=== PATIENT | female | born 1945 | race Caucasian/White ===

== ENCOUNTER 2017-01-10 14:48 | Emergency (ER) | payer MEDICARE, OTHER ==
[2017-01-10 15:03] VITALS: BP 130/71
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
--- NOTE | 2017-01-10 16:04 | CT ---
CT cervical spine Technique: Multiple axial sections were obtained from above C1 inferiorly to below the T2 level. Reconstructed sagittal and coronal images were reviewed. Comparison: No previous cervical spine imaging. Findings: Mastoid sinuses and middle ear cavities are clear. Posterior skull base is intact. Degenerative change is noted between the dens and anterior arch of C1. Mild disc space narrowing is noted at C2-C3 and C3-C4. Severe disc space narrowing is noted at C4-C5, C5-C6 and C6-C7. Mild disc space narrowing noted at C7-T1 as well as at T1-T2 and T2-T3. There are air cysts scattered within the cervical spine and within T1 involving the vertebral bodies which are degenerative in etiology. Mild spondylolisthesis is noted at C3-C4 due to degenerative apophyseal change. Moderate to severe left-sided neural foraminal stenosis noted at C3-C4. Moderate to severe bilateral neural foraminal stenosis noted at C4-C5. Moderate bilateral neural foraminal stenosis is noted C5-C6. Mild bilateral neural foraminal stenosis is noted at C6-C7. Posterior spurring is noted at C4-C5-C7. Calcification is seen within the posterior annulus at C3-C4 and C4-C5. Diffuse degenerative change is seen throughout the apophyseal joints and throughout the uncovertebral joints. No fracture is seen. Impression: 1. Diffuse degenerative change as described above. 2. Nothing acute is appreciated on CT study of the cervical spine. Diagnostic code #2
--- NOTE | 2017-01-10 16:04 | CT ---
Head CT Technique: Multiple axial sections through the brain were obtained. Intravenous contrast was not utilized. Comparison: No previous intracranial imaging. Findings: Ventricles along with basal cisterns and sulci over convexities are mildly prominent. No abnormal parenchymal densities are seen. No evidence of intracranial hemorrhage. No midline shift or mass effect is seen. Bone window settings were reviewed which shows no discrete calvarial abnormality. Visualized sinuses are clear. Impression: 1. Nothing acute is identified on noncontrast head CT study. Diagnostic code #1
--- NOTE | 2017-01-13 08:58 | CR ---
Chest: Frontal view of the chest was obtained. Comparison: No prior chest x-ray. Heart size is normal. Tortuous thoracic aorta is seen. Lungs are clear. Old trauma which appears healed is partially visualized within the proximal left humerus. Old healed fracture is partially visualized within the proximal right humerus. Old healed left upper rib fractures are seen. Impression: 1. Incidental findings. Nothing acute is identified on frontal chest x-ray. Diagnostic code #2
--- NOTE | 2017-01-13 08:58 | CR ---
Right shoulder: Three views of the right shoulder were obtained. Comparison: No previous right shoulder study. Mild joint space narrowing and small osteophytes are seen inferiorly off the acromioclavicular joint. Glenohumeral joint shows minimal degenerative change. Calcification is seen within the soft tissues lateral to the humeral head presumably dystrophic. Difficult to completely exclude calcific tendinitis. Old healed fracture deformity is seen within the proximal humerus. Impression: 1. Degenerative change and old healed proximal humeral fracture. 2. Nothing acute is appreciated on three-view right shoulder study. Diagnostic code #2
--- NOTE | 2017-01-13 08:58 | CR ---
Left knee: Four views of the left knee were obtained. Comparison: Previous left knee exam of 02/17/12. Joint space narrowing is noted within the patellofemoral joint. Slight osteophytes off the medial and lateral joints are seen. No joint effusion is seen. No acute fracture or other abnormality is identified. Well-corticated calcifications are noted off the superior patella which are stable. Impression: 1. Degenerative change as noted above. Nothing acute is appreciated on left knee exam. Diagnostic code #2
--- NOTE | 2017-01-13 08:58 | CR ---
Right knee: Four views of the right knee were obtained. Comparison: Previous right knee exam of 02/17/12. Knee prosthesis is seen. Components are aligned. Underlying bony structures are intact. No fracture or other abnormality is seen. Impression: 1. Right knee prosthesis. Nothing acute is identified. Diagnostic code #2
--- NOTE | 2017-01-13 08:58 | CR ---
Left shoulder: Three views of the left shoulder were obtained. Comparison: Previous left shoulder study of 10/18/10. Old healed fracture deformity is seen within the proximal humerus. Orthopedic screws remain in place. Bony structures are osteopenic. Old healed left upper rib fractures are noted. No acute fracture or other bony abnormality is seen. Impression: 1. Old healed fractures. Nothing acute is seen. Diagnostic code #2
== END 2017-01-10 18:11 | disposition home or self-care (01) ==
LOC: JD.ED 14:48
DX: S01.01XA Laceration without foreign body of scalp, initial encounter (principal); S50.811A Abrasion of right forearm, initial encounter; S20.311A Abrasion of right front wall of thorax, initial encounter; S80.211A Abrasion, right knee, initial encounter; E78.00 Pure hypercholesterolemia, unspecified; I10 Essential (primary) hypertension; J45.909 Unspecified asthma, uncomplicated; K21.9 Gastro-esophageal reflux disease without esophagitis; F41.9 Anxiety disorder, unspecified; F32.9 Major depressive disorder, single episode, unspecified; E66.9 Obesity, unspecified; Z90.49 Acquired absence of other specified parts of digestive tract; Z96.612 Presence of left artificial shoulder joint; Z96.651 Presence of right artificial knee joint; Z88.8 Allergy status to other drugs, medicaments and biological substances; Z88.2 Allergy status to sulfonamides; Z79.899 Other long term (current) drug therapy; Z98.84 Bariatric surgery status; Z86.2 Personal history of diseases of the blood and blood-forming organs and certain disorders involving the immune mechanism; Z68.31 Body mass index [BMI] 31.0-31.9, adult; W10.8XXA Fall (on) (from) other stairs and steps, initial encounter; Y92.241 Library as the place of occurrence of the external cause
CPT/HCPCS: 70450; 70450-26; 71010; 71010-26; 72125; 72125-26; 73030-26-LT; 73030-26-RT; 73030-LT; 73030-RT; 73564-26-LT; 73564-26-RT; 73564-LT; 73564-RT; 99284; 99284-25

== ENCOUNTER 2017-07-24 07:37 | Day surgery (SDC) | payer MEDICARE, OTHER ==
[~2017-07-24 07:37] MED LIST: Cefuroxime 10 MG/ML SYRINGE EYELF SCH; Lidocaine 1% PF 2 ML SDV INJECT SCH; Pilocarpine 4% Ophth Soln 15 ML Bot EYELF SCH; Polymyxin B/Trimethoprim 10 ML Bottle EYELF SCH
[2017-07-24] MEDS: Ofloxacin 0.3% Ophth Soln 5 ML Bottle EYELF SCH ×2 (07:48→08:26)
[2017-07-24] MEDS: Brimonidine 0.2% Ophth Soln 5 ML Bottle EYELF SCH ×3 (07:52→09:34)
[2017-07-24] MEDS: Phenylephrine 2.5% Ophth Soln 2 ML Bot EYELF SCH ×5 (07:56→09:13)
--- NOTE | 2017-07-24 07:58 | PCM.PREANE ---
Preanesthetic Assessment - Anesthesia/Transfusion/Family Hx Anesthesia History: Prior Anesthesia Without Reaction Family History of Anesthesia Reaction: No Transfusion History: Prior Transfusion Without Reaction - Review of Systems General: Other (arthritis) Pulmonary: Other (asthma) Cardiovascular: Other (irregular beat, high cholersterol) Gastrointestinal: Other (GERD on meds) Other: Reports: Diabetes (type 2) - Physical Assessment NPO Status Date: 07/24/17 NPO Status Time: 00:01 Pulse: 59 O2 Sat by Pulse Oximetry: 96 Respiratory Rate: 16 Blood Pressure: 106/54 Weight: 81.647 kg ASA Class: 2 Mental Status: Alert & Oriented x3 Airway Class: Mallampati = 2 Dentition: Reports: Normal Dentition, Implants Thyro-Mental Finger Breadths: 3 Mouth Opening Finger Breadths: 3 ROM/Head Extension: Full Lungs: Clear to Auscultation, Normal Respiratory Effort Cardiovascular: Regular Rate, Regular Rhythm - Allergies Allergies/Adverse Reactions: Allergies Allergy/AdvReac Type Severity Reaction Status Date / Time nitrofurantoin Allergy Rash Verified 07/23/17 15:32 [From Macrobid] nitrofurantoin Allergy Rash Verified 07/23/17 15:32 macrocrystalline [From Macrobid] Sulfa (Sulfonamide Allergy Rash Verified 07/23/17 15:32 Antibiotics) aspirin AdvReac Stomach Verified 07/23/17 15:32 Upset rosuvastatin calcium AdvReac Muscle Verified 07/23/17 15:32 [From Crestor] Aches simvastatin [From Zocor] AdvReac Muscle Verified 07/23/17 15:32 Aches - Anesthesia Plan Beta Jim: Metoprolol Med Last Dose Date: 07/24/17 Med Last Dose Time: 05:30 - Acknowledgements Anesthesia Type Planned: MAC Pt an Appropriate Candidate for the Planned Anesthesia: Yes Alternatives and Risks of Anesthesia Discussed w Pt/Guardian: Yes Pt/Guardian Understands and Agrees with Anesthesia Plan: Yes PreAnesthesia Questionnaire HEENT History: Reports: Allergic Rhinitis, Impaired Vision, Other (See Below) Other HEENT History: wears glasses Cardiovascular History: Reports: High Cholesterol, Hypertension Other Cardiovascular History: palpitations Respiratory History: Reports: Asthma Other Respiratory History: allergies Gastrointestinal History: Reports: Chronic Constipation, GERD, Hiatal Hernia, Other (See Below) Other Gastrointestinal History: gastric ulcer Genitourinary History: Reports: Urinary Incontinence Other Genitourinary History: frequency, stress urinary incontinece, atrophic vaginits, 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: Musculoskeletal History: Reports: Arthritis, Back Pain, Chronic, Neck Pain, Chronic Neurological History: Reports: None Psychiatric History: Reports: Anxiety, Depression Endocrine/Metabolic History: Reports: Obesity/BMI 30+ Hematologic History: Reports: Anemia - Past Surgical History HEENT Surgical History: Reports: Cataract Surgery, Naso-Sinus Surgery, Oral Surgery, Tonsillectomy GI Surgical History: Reports: Appendectomy, Bariatric Procedure, Kristy Fundoplication, Other (See Below) Musculoskeletal Surgical History: Reports: Other (See Below) Other Musculoskeletal Surgeries/Procedures:: knee replacement, hx shoulder surgeries - SUBSTANCE USE Smoking Status *Q: Never Smoker Tobacco Use Within Last Twelve Months: No Second Hand Smoke Exposure: No Recreational Drug Use History: No - HOME MEDS Home Medications: Home Meds Acetaminophen [Acetaminophen Extra Strength] 1,000 mg PO TID 02/18/15 [History] Albuterol Sulfate [Proair Respiclick] 2 puff IH ASDIRECTED PRN 02/18/15 [History ] Calcium Carbonate [Tums] 500 mg PO Q2HR PRN 02/18/15 [History] Calcium Citrate/Vitamin D3 [Calcium Citrate-Vit D Caplet] 1 tab PO BID 02/18/15 [History] Cholecalciferol (Vitamin D3) [Vitamin D3] 2,000 unit PO BID 02/18/15 [History] Fluticasone Propionate [Flonase] 1 spray NASBOTH BID 02/18/15 [History] Fluticasone Propionate [Flovent HFA 110 MCG] 2 puff INH BID 02/18/15 [History] LORazepam [Ativan] 1 mg PO QAM 02/18/15 [History] Loratadine [Claritin] 5 mg PO DAILY PRN 02/18/15 [History] Loteprednol [Lotemax 0.5% Ophth Soln] 1 drop OP ASDIRECTED PRN 02/18/15 [History ] Metoprolol Succinate [Toprol XL] 25 mg PO BID 02/18/15 [History] Multivitamin [Multivitamins] 1 each PO DAILY 02/18/15 [History] Omeprazole [Prilosec] 20 mg PO BID 02/18/15 [History] Petrolat,Wht/Min Oil/Sod Chl [Artificial Tear Ointment] 1 applic OP ASDIRECTED PRN 02/18/15 [History] Polyethylene Glycol 3350 [MiraLAX] 17 gm PO DAILY 02/18/15 [History] Pravastatin Sodium [Pravachol] 20 mg PO DAILY 02/18/15 [History] Cyanocobalamin (Vitamin B-12) [B-12 Kit] 1 dose SQ ASDIRECTED 03/12/16 [History] LORazepam [Ativan] 2 mg PO BEDTIME 03/12/16 [History] Psyllium with Sucrose [Metamucil] 1 each PO DAILY 03/12/16 [History] - CURRENT (IN HOUSE) MEDS Current Meds: Current Medications Brimonidine Tartrate (Alphagan 0.2% Ophth Soln) 0 ml EYELF ASDIRECTED JAE Stop: 07/24/17 18:00 Cefuroxime Sodium (Zinacef) 0 mg EYELF ASDIRECTED JAE Stop: 07/24/17 18:00 Lidocaine HCl (Xylocaine-Mpf 1%) 10 ml INJECT ASDIRECTED JAE Stop: 07/24/17 18:00 Ofloxacin (Ocuflox 0.3% Ophth Soln) 0 ml EYELF ASDIRECTED JAE Stop: 07/24/17 18:00 Last Admin: 07/24/17 07:48 Dose: 1 drop Phenylephrine HCl (Usama-Synephrine 2.5% Ophth Soln) 0 ml EYELF ASDIRECTED JAE Stop: 07/24/17 18:00 Pilocarpine HCl (Pilocar 4% Ophth Soln) 0 ml EYELF ASDIRECTED JAE Stop: 07/24/17 18:00 Tetracaine HCl (Tetracaine 0.5% Steri-Unit Patty) 0 ml EYELF ASDIRECTED JAE Stop: 07/24/17 18:00 Tropicamide (Mydriacyl 1% Ophth Soln) 0 ml EYELF ASDIRECTED JAE Stop: 07/24/17 18:00 Discontinued Medications Polymyxin/Trimethoprim Sulfate (Polytrim Ophth Soln) 0 ml EYELF ASDIRECTED JAE
[2017-07-24] MEDS: Tetracaine HCl/PF 0.5% 4 ML Bottle EYELF SCH ×2 (08:55→09:22)
--- NOTE | 2017-07-24 09:36 | PCM48HPAN ---
Post Anesthesia Note - EVALUATION WITHIN 48HRS OF ANESTHETIC Vital Signs in Normal Range: Yes Patient Participated in Evaluation: Yes Respiratory Function Stable: Yes Airway Patent: Yes Cardiovascular Function Stable: Yes Hydration Status Stable: Yes Pain Control Satisfactory: Yes Nausea and Vomiting Control Satisfactory: Yes Mental Status Recovered: Yes Pulse Rate: 69 SaO2: 100 Resp Rate: 16 Temperature: 36 C Blood Pressure: 102/58
[2017-07-24 09:59] VITALS: BP 109/66
== END 2017-07-24 09:45 | disposition home or self-care (01) ==
LOC: JD.SDS 07:37
PROVIDERS: ATTEND Ophthalmology
DX: H26.9 Unspecified cataract (principal); J45.909 Unspecified asthma, uncomplicated; E11.9 Type 2 diabetes mellitus without complications; Z79.899 Other long term (current) drug therapy; Z88.2 Allergy status to sulfonamides; Z91.09 Other allergy status, other than to drugs and biological substances
CPT/HCPCS: 66984; J0697; A9270-GY

== ENCOUNTER 2017-08-21 09:18 | Day surgery (SDC) | payer MEDICARE, OTHER ==
[~2017-08-21 09:18] MED LIST changes: -Cefuroxime 10 MG/ML SYRINGE EYELF SCH; +Cefuroxime 10 MG/ML SYRINGE EYERT SCH; -Pilocarpine 4% Ophth Soln 15 ML Bot EYELF SCH; +Pilocarpine 4% Ophth Soln 15 ML Bot EYERT SCH; -Polymyxin B/Trimethoprim 10 ML Bottle EYELF SCH
[2017-08-21] MEDS: Ofloxacin 0.3% Ophth Soln 5 ML Bottle EYERT SCH ×3 (09:55→11:37)
[2017-08-21] MEDS: Brimonidine 0.2% Ophth Soln 5 ML Bottle EYERT SCH ×3 (10:00→11:37)
[2017-08-21] MEDS: Phenylephrine 2.5% Ophth Soln 2 ML Bot EYERT SCH ×5 (10:05→11:22)
--- NOTE | 2017-08-21 10:12 | PCM.PREANE ---
Preanesthetic Assessment - Anesthesia/Transfusion/Family Hx Anesthesia History: Prior Anesthesia Without Reaction Family History of Anesthesia Reaction: No Transfusion History: Prior Transfusion Without Reaction - Review of Systems General: No Symptoms Pulmonary: No Symptoms Cardiovascular: No Symptoms Gastrointestinal: No Symptoms Neurological: No Symptoms Other: Reports: None - Physical Assessment NPO Status Date: 08/20/17 NPO Status Time: 23:59 Pulse: 57 O2 Sat by Pulse Oximetry: 98 Respiratory Rate: 16 Blood Pressure: 137/55 Temperature: 37.0 C Vital Signs: Last Vital Signs Temp 37.0 C 08/21/17 09:45 Pulse 57 L 08/21/17 09:45 Resp 16 08/21/17 09:45 BP 137/55 L 08/21/17 09:45 Pulse Ox 98 08/21/17 09:45 Height: 1.65 m Weight: 81.647 kg ASA Class: 3 Mental Status: Alert & Oriented x3 Dentition: Reports: [place](s), [place], [place] Thyro-Mental Finger Breadths: 3 Mouth Opening Finger Breadths: 2 ROM/Head Extension: Limited/Partial Lungs: Clear to Auscultation, Normal Respiratory Effort Cardiovascular: Regular Rhythm, Irregular Rhythm - Allergies Allergies/Adverse Reactions: Allergies Allergy/AdvReac Type Severity Reaction Status Date / Time nitrofurantoin Allergy Rash Verified 08/20/17 11:22 [From Macrobid] nitrofurantoin Allergy Rash Verified 08/20/17 11:22 macrocrystalline [From Macrobid] Sulfa (Sulfonamide Allergy Rash Verified 08/20/17 11:22 Antibiotics) aspirin AdvReac Stomach Verified 08/20/17 11:22 Upset rosuvastatin calcium AdvReac Muscle Verified 08/20/17 11:22 [From Crestor] Aches simvastatin [From Zocor] AdvReac Muscle Verified 08/20/17 11:22 Aches - Blood Blood Available: No Product(s) Available: None - Anesthesia Plan Pre-Op Medication Ordered: Beta Jim Beta Jim: Metoprolol Med Last Dose Date: 08/21/17 Med Last Dose Time: 06:00 - Acknowledgements Anesthesia Type Planned: MAC Pt an Appropriate Candidate for the Planned Anesthesia: Yes Alternatives and Risks of Anesthesia Discussed w Pt/Guardian: Yes Pt/Guardian Understands and Agrees with Anesthesia Plan: Yes PreAnesthesia Questionnaire HEENT History: Reports: Allergic Rhinitis, Impaired Vision, Other (See Below) Other HEENT History: wears glasses Cardiovascular History: Reports: High Cholesterol, Hypertension Other Cardiovascular History: palpitations Respiratory History: Reports: Asthma Other Respiratory History: allergies Gastrointestinal History: Reports: Chronic Constipation, GERD, Hiatal Hernia, Other (See Below) Other Gastrointestinal History: gastric ulcer Genitourinary History: Reports: Urinary Incontinence Other Genitourinary History: frequency, stress urinary incontinece, atrophic vaginits, 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: Musculoskeletal History: Reports: Arthritis, Back Pain, Chronic, Neck Pain, Chronic Neurological History: Reports: None Psychiatric History: Reports: Anxiety, Depression Endocrine/Metabolic History: Reports: Obesity/BMI 30+ Hematologic History: Reports: Anemia - Past Surgical History HEENT Surgical History: Reports: Cataract Surgery, Naso-Sinus Surgery, Oral Surgery, Tonsillectomy GI Surgical History: Reports: Appendectomy, Bariatric Procedure, Kristy Fundoplication, Other (See Below) Musculoskeletal Surgical History: Reports: Other (See Below) Other Musculoskeletal Surgeries/Procedures:: knee replacement, hx shoulder surgeries - SUBSTANCE USE Smoking Status *Q: Never Smoker Tobacco Use Within Last Twelve Months: No Second Hand Smoke Exposure: No Days Per Week of Alcohol Use: 0 Number of Drinks Per Day: 0 Total Drinks Per Week: 0 Recreational Drug Use History: No - HOME MEDS Home Medications: Home Meds Acetaminophen [Acetaminophen Extra Strength] 1,000 mg PO TID 02/18/15 [History] Albuterol Sulfate [Proair Respiclick] 2 puff IH ASDIRECTED PRN 02/18/15 [History ] Calcium Carbonate [Tums] 500 mg PO Q2HR PRN 02/18/15 [History] Calcium Citrate/Vitamin D3 [Calcium Citrate-Vit D Caplet] 1 tab PO BID 02/18/15 [History] Cholecalciferol (Vitamin D3) [Vitamin D3] 2,000 unit PO BID 02/18/15 [History] Fluticasone Propionate [Flonase] 1 spray NASBOTH BID 02/18/15 [History] Fluticasone Propionate [Flovent HFA 110 MCG] 2 puff INH BID 02/18/15 [History] LORazepam [Ativan] 1 mg PO QAM 02/18/15 [History] Loratadine [Claritin] 5 mg PO DAILY PRN 02/18/15 [History] Loteprednol [Lotemax 0.5% Ophth Soln] 1 drop OP ASDIRECTED PRN 02/18/15 [History ] Metoprolol Succinate [Toprol XL] 25 mg PO BID 02/18/15 [History] Multivitamin [Multivitamins] 1 each PO DAILY 02/18/15 [History] Omeprazole [Prilosec] 20 mg PO BID 02/18/15 [History] Petrolat,Wht/Min Oil/Sod Chl [Artificial Tear Ointment] 1 applic OP ASDIRECTED PRN 02/18/15 [History] Polyethylene Glycol 3350 [MiraLAX] 17 gm PO DAILY 02/18/15 [History] Pravastatin Sodium [Pravachol] 20 mg PO DAILY 02/18/15 [History] Cyanocobalamin (Vitamin B-12) [B-12 Kit] 1 dose SQ ASDIRECTED 03/12/16 [History] LORazepam [Ativan] 2 mg PO BEDTIME 03/12/16 [History] Psyllium with Sucrose [Metamucil] 1 each PO DAILY 03/12/16 [History] - CURRENT (IN HOUSE) MEDS Current Meds: Current Medications Brimonidine Tartrate (Alphagan 0.2% Ophth Soln) 0 ml EYERT ASDIRECTED JAE Stop: 08/21/17 18:00 Last Admin: 08/21/17 10:00 Dose: 1 drop Cefuroxime Sodium (Zinacef) 0 mg EYERT ASDIRECTED JAE Stop: 08/21/17 18:00 Lidocaine HCl (Xylocaine-Mpf 1%) 10 ml INJECT ASDIRECTED JAE Stop: 08/21/17 18:00 Ofloxacin (Ocuflox 0.3% Ophth Soln) 0 ml EYERT ASDIRECTED JAE Stop: 08/21/17 18:00 Last Admin: 08/21/17 09:55 Dose: 1 drop Phenylephrine HCl (Usama-Synephrine 2.5% Ophth Soln) 0 ml EYERT ASDIRECTED JAE Stop: 08/21/17 18:00 Last Admin: 08/21/17 10:05 Dose: 1 drop Pilocarpine HCl (Pilocar 4% Ophth Soln) 0 ml EYERT ASDIRECTED JAE Stop: 08/21/17 18:00 Tetracaine HCl (Tetracaine 0.5% Steri-Unit Patty) 0 ml EYERT ASDIRECTED JAE Stop: 08/21/17 18:00 Tropicamide (Mydriacyl 1% Ophth Soln) 0 ml EYERT ASDIRECTED JAE Stop: 08/21/17 18:00 Discontinued Medications Tropicamide (Mydriacyl 1% Ophth Soln) 0 ml EYERT ASDIRECTED JAE Stop: 08/21/17 18:00
[2017-08-21] MEDS: Tropicamide 1% Ophth Soln 3 ML Bottle EYERT SCH ×4 (10:13→11:04)
[2017-08-21] MEDS: Tetracaine HCl/PF 0.5% 4 ML Bottle EYERT SCH ×2 (11:07→11:29)
--- NOTE | 2017-08-21 11:42 | PCM48HPAN ---
Post Anesthesia Note - EVALUATION WITHIN 48HRS OF ANESTHETIC Vital Signs in Normal Range: Yes Patient Participated in Evaluation: Yes Respiratory Function Stable: Yes Airway Patent: Yes Cardiovascular Function Stable: Yes Hydration Status Stable: Yes Pain Control Satisfactory: Yes Nausea and Vomiting Control Satisfactory: Yes Mental Status Recovered: Yes
[2017-08-21 12:03] VITALS: BP 128/63
== END 2017-08-21 11:55 | disposition home or self-care (01) ==
LOC: JD.SDS 09:18
PROVIDERS: ATTEND Ophthalmology
DX: H26.9 Unspecified cataract (principal); J45.909 Unspecified asthma, uncomplicated; E11.36 Type 2 diabetes mellitus with diabetic cataract; Z88.2 Allergy status to sulfonamides; Z91.09 Other allergy status, other than to drugs and biological substances; Z79.899 Other long term (current) drug therapy
CPT/HCPCS: 66984; C1780; J0697; A9270-GY

== ENCOUNTER 2020-04-21 10:02 | Day surgery (SDC) | payer MEDICARE, OTHER ==
--- NOTE | 2020-04-21 07:05 | PCM.SN.2 ---
- Free Text/Narrative Note: Preoperative gynecologic note: Please see complete preoperative history and physical as dictated per Edna Stover, nurse practitioner. HPI. Vaginal bleeding secondary to granulation tissue at vaginal cuff. Recurrent in nature. History present illness patient is a 74-year-old multigravida female who was referred by her nurse practitioner Edna stover for persistent/recurrent vaginal bleeding. This is minimal in nature. Evaluation showed what appears to be granulation tissue at the vaginal cuff. Patient has a remote history of hysterectomy. She has no other symptoms whatsoever. The granulation tissue was previously treated sometime ago with silver nitrate but now has recurred. Have recommended complete excision of this for definitive therapy. Also to evaluate histologically. Assessment: 1. Granulation tissuevaginal cuffbenign in appearancerecurrent in nature. 2. Generally healthy female should tolerate this procedure well. Please see preoperative history and physical. Plan: 1. Surgical excision of the small area of granulation tissue under sedation. Procedure, risk, benefits, follow-up all discussed with patient. She appears understand, wishes to proceed 2. DVT prophylaxis with SCDs 3. Infection prophylaxis with Ancef 2 g IV preop.. Preoperative laboratory and EKG evaluation as ordered by Edna Kim.
[~2020-04-21 10:02] MED LIST changes: -Cefuroxime 10 MG/ML SYRINGE EYERT SCH; +Lactated Ringers 1,000 ML IV SCH; -Lidocaine 1% PF 2 ML SDV INJECT SCH; +Lidocaine 1%/Sod Bicarbonate in NS 8.4% 1 ML Syringe IDERM PRN; -Pilocarpine 4% Ophth Soln 15 ML Bot EYERT SCH; +Sodium Chloride 0.9% 10 ML Syringe FLUSH PRN
--- NOTE | 2020-04-21 10:50 | PCM.PREANE ---
Preanesthetic Assessment - Procedure Proposed Procedure: excission of granulation tissue of vaginal cuff - Anesthesia/Transfusion/Family Hx Anesthesia History: Prior Anesthesia Without Reaction Family History of Anesthesia Reaction: No Transfusion History: Prior Transfusion Without Reaction - Review of Systems General: No Symptoms Pulmonary: No Symptoms Cardiovascular: Dyspnea on Exertion Gastrointestinal: No Symptoms Neurological: Numbness (right foot) Other: Reports: Neck Pain - Physical Assessment NPO Status Date: 04/20/20 NPO Status Time: 00:00 Vital Signs: Last Vital Signs Temp 36.6 C 04/21/20 10:15 Pulse 65 04/21/20 10:15 Resp 14 04/21/20 10:15 BP 118/74 04/21/20 10:15 Pulse Ox 98 04/21/20 10:15 Height: 1.65 m Weight: 86 kg ASA Class: 3 Mental Status: Alert & Oriented x3 Dentition: Reports: [place](s), [place]top), [place] Thyro-Mental Finger Breadths: 2 Mouth Opening Finger Breadths: 2 ROM/Head Extension: Limited/Partial Lungs: Clear to Auscultation, Normal Respiratory Effort Cardiovascular: Regular Rate, Regular Rhythm - Allergies Allergies/Adverse Reactions: Allergies Allergy/AdvReac Type Severity Reaction Status Date / Time nitrofurantoin Allergy Rash Verified 04/20/20 11:40 [From Macrobid] nitrofurantoin Allergy Rash Verified 04/20/20 11:40 macrocrystalline [From Macrobid] Sulfa (Sulfonamide Allergy Rash Verified 04/20/20 11:40 Antibiotics) aspirin AdvReac Stomach Verified 04/20/20 11:40 Upset rosuvastatin calcium AdvReac Muscle Verified 04/20/20 11:40 [From Crestor] Aches simvastatin [From Zocor] AdvReac Muscle Verified 04/20/20 11:40 Aches - Blood Blood Available: No Product(s) Available: None - Anesthesia Plan Pre-Op Medication Ordered: Beta Jim Beta Jim: Metoprolol Med Last Dose Date: 04/21/20 Med Last Dose Time: 06:30 - Acknowledgements Anesthesia Type Planned: MAC Pt an Appropriate Candidate for the Planned Anesthesia: Yes Alternatives and Risks of Anesthesia Discussed w Pt/Guardian: Yes Pt/Guardian Understands and Agrees with Anesthesia Plan: Yes PreAnesthesia Questionnaire HEENT History: Reports: Allergic Rhinitis, Impaired Vision, Other (See Below) Other HEENT History: wears glasses Cardiovascular History: Reports: High Cholesterol, Hypertension Other Cardiovascular History: palpitations Respiratory History: Reports: Asthma Other Respiratory History: allergies Gastrointestinal History: Reports: Chronic Constipation, GERD, Hiatal Hernia, Other (See Below) Other Gastrointestinal History: gastric ulcer Genitourinary History: Reports: Urinary Incontinence Other Genitourinary History: frequency, stress urinary incontinece, atrophic vaginits, 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: Musculoskeletal History: Reports: Arthritis, Back Pain, Chronic, Neck Pain, Chronic Neurological History: Reports: None Psychiatric History: Reports: Anxiety, Depression Endocrine/Metabolic History: Reports: Obesity/BMI 30+ Hematologic History: Reports: Anemia Immunologic History: Reports: None Oncologic (Cancer) History: Reports: None Dermatologic History: Reports: None - Infectious Disease History Infectious Disease History: Reports: None - Past Surgical History Head Surgeries/Procedures: Reports: None HEENT Surgical History: Reports: Cataract Surgery, Naso-Sinus Surgery, Oral Surgery, Tonsillectomy Cardiovascular Surgical History: Reports: None GI Surgical History: Reports: Appendectomy, Bariatric Procedure, Kristy Fundoplication, Other (See Below) Other GI Surgeries/Procedures: rectal surgery Female Surgical History: Reports: D&C, Hysterectomy, Oophorectomy Neurological Surgical History: Reports: Lumbar Spine Musculoskeletal Surgical History: Reports: Other (See Below) Other Musculoskeletal Surgeries/Procedures:: knee replacement, hx shoulder surgeries, right bunionectomy Oncologic Surgical History: Reports: None Dermatological Surgical History: Reports: None - SUBSTANCE USE Tobacco Use Status *Q: Never Tobacco User Recreational Drug Use History: No - HOME MEDS Home Medications: Home Meds Acetaminophen [Acetaminophen Extra Strength] 1,000 mg PO TID 02/18/15 [History] Albuterol Sulfate [Proair Respiclick] 2 puff IH ASDIRECTED PRN 02/18/15 [History] Calcium Citrate/Vitamin D3 [Calcium Citrate-Vit D Caplet] 1 tab PO BID 02/18/15 [History] Cholecalciferol (Vitamin D3) [Vitamin D3] 2,000 unit PO BID 02/18/15 [History] Fluticasone Propionate [Flonase] 1 spray NASBOTH BID 02/18/15 [History] Fluticasone Propionate [Flovent HFA 110 MCG] 2 puff INH BID 02/18/15 [History] LORazepam [Ativan] 1 mg PO QAM 02/18/15 [History] Loratadine [Claritin] 10 mg PO DAILY PRN 02/18/15 [History] Metoprolol Succinate [Toprol XL] 25 mg PO BID 02/18/15 [History] Multivitamin [Multivitamins] 1 each PO DAILY 02/18/15 [History] Petrolat,Wht/Min Oil/Sod Chl [Artificial Tear Ointment] 1 applic OP ASDIRECTED PRN 02/18/15 [History] Polyethylene Glycol 3350 [MiraLAX] 17 gm PO DAILY 02/18/15 [History] Pravastatin Sodium [Pravachol] 20 mg PO DAILY 02/18/15 [History] Cyanocobalamin (Vitamin B-12) [B-12 Kit] 1 dose SQ ASDIRECTED 03/12/16 [History] LORazepam [Ativan] 2 mg PO BEDTIME 03/12/16 [History] Psyllium with Sucrose [Metamucil] 1 each PO DAILY 03/12/16 [History] - CURRENT (IN HOUSE) MEDS Current Meds: Current Medications Lactated Ringer's (Ringers, Lactated) 1,000 mls @ 125 mls/hr IV ASDIRECTED JAE Stop: 04/21/20 23:00 Lidocaine/Sodium Bicarbonate (Buffered Lidocaine 1% In Ns 8.4%) 0.25 ml IDERM ONETIME PRN PRN Reason: Prior to IV Start Stop: 04/21/20 18:00 Sodium Chloride (Saline Flush) 10 ml FLUSH ASDIRECTED PRN PRN Reason: Keep Vein Open Stop: 04/21/20 18:00
[2020-04-21] MEDS ORDERED: fentaNYL 100 MCG/2 ML SDV ONE (10:55)
[2020-04-21] MEDS ORDERED: Propofol 200 MG/20 ML SDV ONE (10:55)
[2020-04-21] MEDS ORDERED: Lidocaine 1% 4 ML ONE (10:55)
[2020-04-21] MEDS ORDERED: Ibuprofen 400 MG Tab PO PRN (11:36)
--- NOTE | 2020-04-21 11:41 | PCM.OPNOTE ---
- General Post-Op/Procedure Note Date of Surgery/Procedure: 04/21/20 Operative Procedure(s): Excision of vaginal cuff granulation tissue Findings: Patient is noted to have an area approximately 1-1/2 cm x 1 cm which was reddened fleshy in appearance and very fragile and friable. Findings are co nsistent with granulation tissue. Complete excision was performed. Pre Op Diagnosis: 1. Granulation tissue vaginal cuff. 2. Postmenopausal vaginal bleeding Post-Op Diagnosis: Same Anesthesia Technique: MAC Primary Surgeon: Albert Zhang Anesthesia Provider: Chi Parker Fluid Replacement, Intraop: 600 EBL in mLs: 20 Complications: None Condition: Good Free Text/Narrative:: Surgery duration: 11 minutes Procedure: After patient was appropriately consented she was taken to the operating room and placed in supine position operating table. Monitored anesthetic was then given for IV. After adequate anesthesia patient was placed in a dorsal lithotomy position. A weighted speculum was placed in the vagina and the area of the granulation tissue was visualized. This area was excised superficially in its entirety. The area was oversewn with 3-0 Monocryl suture in a running locked fashion. Hemostasis was confirmed at the end of the p rocedure. Patient tolerated procedure well. The anesthesia was reversed. She was returned to supine position left the operating room in good condition.
--- NOTE | 2020-04-21 11:45 | PCM48HPAN ---
Post Anesthesia Note - EVALUATION WITHIN 48HRS OF ANESTHETIC Vital Signs in Normal Range: Yes Patient Participated in Evaluation: Yes Respiratory Function Stable: Yes Airway Patent: Yes Cardiovascular Function Stable: Yes Hydration Status Stable: Yes Pain Control Satisfactory: Yes Nausea and Vomiting Control Satisfactory: Yes Mental Status Recovered: Yes Vital Signs: Last Vital Signs Temp 36.6 C 04/21/20 10:15 Pulse 65 04/21/20 10:15 Resp 14 04/21/20 10:15 BP 118/74 04/21/20 10:15 Pulse Ox 98 04/21/20 10:15 - COMMENTS/OBSERVATIONS Free Text/Narrative:: no anesthesia complications noted
[2020-04-21] MEDS ORDERED: Acetaminophen 325 MG Tab PO ONE (12:13)
[2020-04-21 12:56] VITALS: BP 132/81; PULSE 73
== END 2020-04-21 13:16 | disposition home or self-care (01) ==
LOC: JD.SDS 10:02
PROVIDERS: ATTEND Obstetrics & Gynecology
DX: N76.1 Subacute and chronic vaginitis (principal); F41.9 Anxiety disorder, unspecified; J45.909 Unspecified asthma, uncomplicated; K21.9 Gastro-esophageal reflux disease without esophagitis; I10 Essential (primary) hypertension; E78.00 Pure hypercholesterolemia, unspecified; F32.9 Major depressive disorder, single episode, unspecified; E66.9 Obesity, unspecified; Z68.33 Body mass index [BMI] 33.0-33.9, adult; Z88.8 Allergy status to other drugs, medicaments and biological substances; Z88.2 Allergy status to sulfonamides; Z79.899 Other long term (current) drug therapy; Z90.49 Acquired absence of other specified parts of digestive tract
CPT/HCPCS: 57135; A9270; J2001; J2704; J3010; J7120; 00940; 00944

== ENCOUNTER 2020-06-27 07:39 | Day surgery (SDC) | payer MEDICARE, OTHER ==
[~2020-06-27 07:39] MED LIST changes: +Albuterol 0.083% 2.5 MG/3 ML Neb Soln NEB PRN; -Lactated Ringers 1,000 ML IV SCH
[2020-06-27] MEDS ORDERED: Lidocaine 1% with EPINEPHrine 1:100,000 20 ML MDV ONE (07:44)
[2020-06-27] MEDS ORDERED: Sodium Chloride 0.9% 50 ML SDV ONE (07:44)
[2020-06-27] MEDS: Lactated Ringers 1,000 ML IV SCH ×2 (07:55→12:50)
[2020-06-27] MEDS ORDERED: Propofol 200 MG/20 ML SDV ONE (07:56)
[2020-06-27] MEDS ORDERED: Ondansetron 4 MG/2 ML SDV ONE (07:56)
[2020-06-27] MEDS ORDERED: Rocuronium 50 MG/5 ML Vial ONE (07:56)
[2020-06-27] MEDS ORDERED: fentaNYL 250 MCG/5 ML SDV ONE (07:56)
[2020-06-27] MEDS ORDERED: Lidocaine 1% 4 ML ONE ×2 (07:57→09:24)
[2020-06-27] MEDS ORDERED: Albuterol 0.083% 2.5 MG/3 ML Neb Soln NEB SCH (08:46)
--- NOTE | 2020-06-27 08:51 | PCM.PREANE ---
Preanesthetic Assessment - Procedure Proposed Procedure: Anterior and Posterior Repair with perineoplasty and midurethral sling. - Anesthesia/Transfusion/Family Hx Anesthesia History: Prior Anesthesia Without Reaction Transfusion History: Prior Transfusion Without Reaction - Review of Systems General: No Symptoms Pulmonary: Cough (Chronic, occasional, asthma is controlled. ) Cardiovascular: No Symptoms (Palpatations) Gastrointestinal: Other (GERD, history of gastric ulcer, PUD. Controlled with bid pepcid ac. Gastric Bypass surgery. ) Neurological: Difficulty Walking (Pain in bilateral feet with some numbness in right foot. Walks for 20-30 minutes daily. ) Other: Reports: None (Chronic rhinitis. ), Anxiety - Physical Assessment NPO Status Date: 06/26/20 NPO Status Time: 22:00 Vital Signs: Last Vital Signs Temp 36.8 C 06/27/20 07:50 Pulse 74 06/27/20 07:50 Resp 16 06/27/20 07:50 BP 139/60 06/27/20 07:50 Pulse Ox 97 06/27/20 07:50 Height: 1.63 m Weight: 85.729 kg ASA Class: 3 Mental Status: Alert & Oriented x3 Airway Class: Mallampati = 1 Dentition: Reports: Partial (Front 4 teeth, permanent partial. ), [place](s) Thyro-Mental Finger Breadths: 2 Mouth Opening Finger Breadths: 3 ROM/Head Extension: Full Lungs: Clear to Auscultation, Normal Respiratory Effort, Decreased Breath Sounds Cardiovascular: Regular Rate, Regular Rhythm - Lab Values: Laboratory Last Values WBC 4.08 K/mm3 (3.98-10.04) 06/27/20 07:55 RBC 4.42 M/mm3 (3.98-5.22) 06/27/20 07:55 Hgb 12.9 gm/dl (11.2-15.7) 06/27/20 07:55 Hct 40.2 % (34.1-44.9) 06/27/20 07:55 MCV 91.0 fl (79.4-94.8) 06/27/20 07:55 MCH 29.2 pg (25.6-32.2) 06/27/20 07:55 MCHC 32.1 g/dl (32.2-35.5) L 06/27/20 07:55 RDW Std Deviation 44.5 fL (36.4-46.3) 06/27/20 07:55 Plt Count 201 K/mm3 (182-369) 06/27/20 07:55 MPV 10.2 fl (9.4-12.3) 06/27/20 07:55 Neut % (Auto) 61.9 % (34.0-71.1) 06/27/20 07:55 Lymph % (Auto) 26.2 % (19.3-51.7) 06/27/20 07:55 [place] % (Auto) 10.5 % (4.7-12.5) 06/27/20 07:55 Eos % (Auto) 1.2 (0.7-5.8) 06/27/20 07:55 Baso % (Auto) 0.2 % (0.1-1.2) 06/27/20 07:55 Neut # (Auto) 2.52 K/mm3 (1.56-6.13) 06/27/20 07:55 Lymph # (Auto) 1.07 K/mm3 (1.18-3.74) L 06/27/20 07:55 [place] # (Auto) 0.43 K/mm3 (0.24-0.36) H 06/27/20 07:55 Eos # (Auto) 0.05 K/mm3 (0.04-0.36) 06/27/20 07:55 Baso # (Auto) 0.01 K/mm3 (0.01-0.08) 06/27/20 07:55 - Allergies Allergies/Adverse Reactions: Allergies Allergy/AdvReac Type Severity Reaction Status Date / Time nitrofurantoin Allergy Rash Verified 06/27/20 08:36 [From Macrobid] nitrofurantoin Allergy Rash Verified 06/27/20 08:36 macrocrystalline [From Macrobid] Sulfa (Sulfonamide Allergy Rash Verified 06/27/20 08:36 Antibiotics) aspirin AdvReac Stomach Verified 06/27/20 08:36 Upset rosuvastatin calcium AdvReac Muscle Verified 06/27/20 08:36 [From Crestor] Aches simvastatin [From Zocor] AdvReac Muscle Verified 06/27/20 08:36 Aches - Anesthesia Plan Pre-Op Medication Ordered: Other (Albuterol nebulizer) - Acknowledgements Anesthesia Type Planned: General Anesthesia Pt an Appropriate Candidate for the Planned Anesthesia: Yes Alternatives and Risks of Anesthesia Discussed w Pt/Guardian: Yes Pt/Guardian Understands and Agrees with Anesthesia Plan: Yes PreAnesthesia Questionnaire HEENT History: Reports: Allergic Rhinitis, Impaired Vision, Other (See Below) Other HEENT History: wears glasses Cardiovascular History: Reports: High Cholesterol, Hypertension Other Cardiovascular History: palpitations Respiratory History: Reports: Asthma Other Respiratory History: allergies Gastrointestinal History: Reports: Chronic Constipation, GERD, Hiatal Hernia, Other (See Below) Other Gastrointestinal History: gastric ulcer Genitourinary History: Reports: Urinary Incontinence Other Genitourinary History: frequency, stress urinary incontinece, atrophic vaginits, 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: Musculoskeletal History: Reports: Arthritis, Back Pain, Chronic, Neck Pain, Chronic Neurological History: Reports: None Psychiatric History: Reports: Anxiety, Depression Endocrine/Metabolic History: Reports: Obesity/BMI 30+ Hematologic History: Reports: Anemia Immunologic History: Reports: None Oncologic (Cancer) History: Reports: None Dermatologic History: Reports: None - Infectious Disease History Infectious Disease History: Reports: None - Past Surgical History Head Surgeries/Procedures: Reports: None HEENT Surgical History: Reports: Cataract Surgery, Naso-Sinus Surgery, Oral Surgery, Tonsillectomy Cardiovascular Surgical History: Reports: None Respiratory Surgical History: Reports: None GI Surgical History: Reports: Appendectomy, Bariatric Procedure, Kristy Fundoplication, Other (See Below) Other GI Surgeries/Procedures: rectal surgery Female Surgical History: Reports: D&C, Hysterectomy Endocrine Surgical History: Reports: None Neurological Surgical History: Reports: Lumbar Spine Musculoskeletal Surgical History: Reports: Other (See Below) Other Musculoskeletal Surgeries/Procedures:: knee replacement, hx shoulder surgeries Oncologic Surgical History: Reports: None Dermatological Surgical History: Reports: None - SUBSTANCE USE Tobacco Use Status *Q: Never Tobacco User Recreational Drug Use History: No - HOME MEDS Home Medications: Home Meds Albuterol Sulfate [Proair Respiclick] 2 puff IH ASDIRECTED PRN 02/18/15 [History] Calcium Citrate/Vitamin D3 [Calcium Citrate-Vit D Caplet] 1 tab PO BID 02/18/15 [History] Cholecalciferol (Vitamin D3) [Vitamin D3] 2,000 unit PO BID 02/18/15 [History] Fluticasone Propionate [Flonase] 1 spray NASBOTH BID 02/18/15 [History] Fluticasone Propionate [Flovent HFA 110 MCG] 2 puff INH BID 02/18/15 [History] LORazepam [Ativan] 1 mg PO QAM 02/18/15 [History] Loratadine [Claritin] 10 mg PO DAILY PRN 02/18/15 [History] Metoprolol Succinate [Toprol XL] 25 mg PO BID 02/18/15 [History] Multivitamin [Multivitamins] 1 each PO DAILY 02/18/15 [History] Petrolat,Wht/Min Oil/Sod Chl [Artificial Tear Ointment] 1 applic OP ASDIRECTED PRN 02/18/15 [History] Polyethylene Glycol 3350 [MiraLAX] 17 gm PO DAILY 02/18/15 [History] Pravastatin Sodium [Pravachol] 20 mg PO DAILY 02/18/15 [History] Cyanocobalamin (Vitamin B-12) [B-12 Kit] 1 dose SQ Q30D 03/12/16 [History] LORazepam [Ativan] 2 mg PO BEDTIME 03/12/16 [History] Psyllium with Sucrose [Metamucil] 1 each PO DAILY 03/12/16 [History] Denosumab [Prolia] 60 mg SQ ASDIRECTED 04/21/20 [History] Furosemide [Lasix] 20 mg PO DAILY PRN 04/21/20 [History] - CURRENT (IN HOUSE) MEDS Current Meds: Current Medications Lactated Ringer's (Ringers, Lactated) 1,000 mls @ 125 mls/hr IV ASDIRECTED JAE Stop: 06/27/20 23:00 Last Admin: 06/27/20 07:55 Dose: 125 mls/hr Documented by: Lidocaine/Sodium Bicarbonate (Buffered Lidocaine 1% In Ns 8.4%) 0.25 ml IDERM ONETIME PRN PRN Reason: Prior to IV Start Stop: 06/27/20 18:00 Last Admin: 06/27/20 07:55 Dose: 0.25 ml Documented by: Sodium Chloride (Saline Flush) 10 ml FLUSH ASDIRECTED PRN PRN Reason: Keep Vein Open Stop: 06/27/20 18:00 Discontinued Medications Albuterol (Proventil Neb Soln) 2.5 mg NEB ONETIME PRN PRN Reason: bronchodilation Stop: 06/26/20 18:00 Fentanyl (Sublimaze) Confirm Administered Dose 250 mcg .ROUTE .STK-MED ONE Stop: 06/27/20 07:57 Lidocaine HCl (Xylocaine-Mpf 1%) Confirm Administered Dose 4 mls @ as directed .ROUTE .STK-MED ONE Stop: 06/27/20 07:58 Lidocaine/Epinephrine (Xylocaine 1% With Epinephrine 1:100,000) Confirm Administered Dose 20 ml .ROUTE .STK-MED ONE Stop: 06/27/20 07:45 Ondansetron HCl (Zofran) Confirm Administered Dose 4 mg .ROUTE .STK-MED ONE Stop: 06/27/20 07:57 Propofol (Diprivan 20 Ml) Confirm Administered Dose 200 mg .ROUTE .STK-MED ONE Stop: 06/27/20 07:57 Rocuronium [place] (Zemuron) Confirm Administered Dose 50 mg .ROUTE .STK-MED ONE Stop: 06/27/20 07:57 Sodium Chloride (Normal Saline) Confirm Administered Dose 50 ml .ROUTE .STK-MED ONE Stop: 06/27/20 07:45
[2020-06-27] MEDS ORDERED: Succinylcholine/Sod PF 100 MG/5 ML SYRINGE IV ONE (09:24)
[2020-06-27] MEDS ORDERED: Dexamethasone 4 MG/ML 5 ML MDV ONE (09:26)
[2020-06-27] MEDS ORDERED: Midazolam 1 MG/ML 2 ML SDV ONE (09:28)
[2020-06-27] MEDS ORDERED: fentaNYL 100 MCG/2 ML SDV IVPUSH PRN (10:25)
[2020-06-27] MEDS ORDERED: HYDROmorphone 0.5 MG/0.5 ML Syringe IVPUSH PRN (10:25)
[2020-06-27] MEDS ORDERED: Acetaminophen/oxyCODONE 325-5 MG Tab PO PRN (10:47)
[2020-06-27] MEDS ORDERED: Ibuprofen 600 MG Tab PO PRN (10:47)
[2020-06-27] MEDS ORDERED: Ondansetron 4 MG/2 ML SDV IVPUSH PRN (10:47)
--- NOTE | 2020-06-27 10:56 | PCM.OPNOTE ---
- General Post-Op/Procedure Note Date of Surgery/Procedure: 06/27/20 Operative Procedure(s): Anterior and posterior vaginal repair with perineoplasty, subfascial mid urethral sling Findings: Grade 2 cystocele, cervix and uterus surgically absent. Grade 1-2 rectocele, gaping introitus. Small amount of granulation tissue left vaginal cuff area4 mm in diameter. Pre Op Diagnosis: 1. Grade 2 cystocele. 2. Grade 1-2 rectocele. 3. Stress urinary incontinence Post-Op Diagnosis: Same granulation tissue left vaginal cuff. Anesthesia Technique: General ET Tube Other Anesthesia Type: Lidocaine with epinephrinelocalproximately 15 cc total Primary Surgeon: Albert Zhang Secondary Surgeon: Tyler Walker Anesthesia Provider: Uriah Fine Reason Graduate Student Instructor Was Necessary: Retraction, assistance, patient safety, quality of care. Pathology: Tissue removed from vaginal cuff consistent with granulation tissue EBL in mLs: 30 Drain/Tube Comments:: Rubber catheter used to drain and fill the bladder during the course of surgery only. Complications: None Condition: Good Free Text/Narrative:: Intake & Output 06/26/20 06/27/20 06/27/20 22:59 06:59 14:59 Output Total 275 Balance -275 Surgery duration: 58 minutes Procedure: The patient is taken to the operating room and placed in a supine position on the operating table. She received 2 g of Ancef preoperatively for infection prophylaxis. She had sequential compression stockings in place for DVT prophylaxis. Patient was administered general endotracheal anesthesia. She was placed in a dorsal lithotomy position and prepped and draped in the usual fashion. Anterior vaginal repair was performed. Patient had emptied her bladder monotyper to the OR. Catheter was used to drain the bladder of 275 cc of normal-appearing urine. Weighted speculum was placed in the vagina and the uppermost portion of the cystocele was identified. Uterus and cervix were surgically absent. Small 4 mm excrescence consistent with with granulation tissue was noted at the left vaginal cuff. This was eventually removed. Two Allis clamps was placed at that uppermost point at a position approximately 1-1/2 cm lateral to the midline A second Allis clamp was placed approximately 2 cm from the urethral meatus. The areas and infiltrated with lidocaine quarter percent with epinephrine. Approximately 8 mL was used. The 2 lateral Allis clamps were retracted and an epithelial incision was made between the 2 clamps. A midline incision was then made with a Metzenbaum scissors. The overlying epithelium was then dissected off of the underlying vesicovaginal fascia. This all to lateral which when approximately midline was felt to be adequate to reduce the cystocele. When this was done approximately 4 trapezoidal shaped sutures of 0 Monocryl were then placed reapproximating the lateral supportive tissue midline and reducing the rectocele. At this point the excess epithelium bilaterally was removed and the epithelium was closed in a running fashion with 3-0 Monocryl suture. Fascial mid urethral sling was then performed. The epithelium overlying the urethra was grasped approximately 1 cm from the urethral meatus and approximately 2 cm cephalad from there with Allis clamps. The area of the skin overlying the medial aspect of the obturator foramen on each side just posterior to the origin the abductor longus muscle was marked with a marking pen. These 2 areas and the sub-fascial layer of the vaginal were then infiltrated with lidocaine quarter percent with epinephrine total of approximately 8 mL was used. incisions made in the epithelium overlying the urethra and 2 small stab wounds 3 mm in length were made in the 2 areas of the panty line of the patient. The subfascial planes were adequately dissected bilaterally to allow placement of the mesh. The helical adapter was then placed through the obturator on patient's left side, then brought out through the vaginal subfascial plane. Mesh was attached to it and then was pulled back through the obturator foramen. Same was done on the right side. Mesh was then snugged up to a Dilator 15 mm in diameter which was was used as a spacer to place the mesh in a tension-free position. At this point the mesh was cut off at the skin surface and the dilator was removed. The midline epithelium was closed with a short running suture of 3- 0 Monocryl. Skin incisions were closed with Dermabond skin glue. At the end of the case and after the posterior vaginal repair and perineoplasty was performed the bladder was filled with approximately 240 cc of normal saline to facilitate voiding and therefore discharged home. Rectocele was then performed. The uppermost portion of the rectocele was identified and was grasped midline with an Allis clamp. The introital area was grasped at approximately the 4:00 and 8:00 positions at the junction of the vaginal and vulvar epithelium. The area of epithelium was then infiltrated with lidocaine quarter percent with epinephrine. A blair-shaped piece of epithelium was removed from the posterior introital and perineal area. The vaginal epithelium was then undermined superiorly to the top of the rectocele. Was then incised midline. With sharp and blunt dissection the epithelium was then dissected off of the underlying vesicovaginal fascia. At this point approximately 5 sutures of 0 Monocryl were placed to reapproximate the lateral supportive tissue midline and reduce the rectocele. The excess epithelium was then excised and the epithelium overlying the rectocele repair was then reapproximated with a running suture of 3-0 Monocryl. Perineoplasty was then performed with approximately 4 V-shaped stitches of 0 Monocryl in placed to reapproximate the lateral tissue midline, rebuild the perineum about 1 cm and the vagina approximately 1 cm. The epithelium of the introitus and perineal body was then reapproximated using 3-0 Monocryl in an episiotomy repair fashion. At this time sponge, instrument and needle counts were correct. The patient was returned to supine position and was discharged from the operating room in good condition.
--- NOTE | 2020-06-27 11:54 | PCM.POSTAN ---
POST ANESTHESIA ASSESSMENT - MENTAL STATUS Mental Status: Somnolent - VITAL SIGNS Vital Signs: 10:58 Postoperative Vital Signs 119/62 92 95% 97.9F 17 RR - RESPIRATORY Respiratory Status: Respiratory Rate WNL, Airway Patent, O2 Saturation Stable, Supplemental Oxygen - CARDIOVASCULAR CV Status: Pulse Rate WNL, Blood Pressure Stable - GASTROINTESTINAL GI Status: No Symptoms - PAIN Pain Score: 0 - POST OP HYDRATION Hydration Status: Adequate & Stable
--- NOTE | 2020-06-27 12:48 | PCM48HPAN ---
Post Anesthesia Note - EVALUATION WITHIN 48HRS OF ANESTHETIC Vital Signs in Normal Range: Yes Patient Participated in Evaluation: Yes Respiratory Function Stable: Yes Airway Patent: Yes Cardiovascular Function Stable: Yes Hydration Status Stable: Yes Pain Control Satisfactory: Yes Nausea and Vomiting Control Satisfactory: Yes Mental Status Recovered: Yes Vital Signs: Last Vital Signs Temp 36.6 C 06/27/20 10:58 Pulse 76 06/27/20 12:35 Resp 16 06/27/20 12:35 BP 104/46 L 06/27/20 12:35 Pulse Ox 94 L 06/27/20 12:35
[2020-06-27 13:02] VITALS: BP 121/78; PULSE 84
== END 2020-06-27 13:25 | disposition home or self-care (01) ==
LOC: JD.SDS 07:39
PROVIDERS: ATTEND Obstetrics & Gynecology
DX: N81.10 Cystocele, unspecified (principal); N81.6 Rectocele; N39.3 Stress incontinence (female) (male); A58 Granuloma inguinale; N95.2 Postmenopausal atrophic vaginitis; N39.0 Urinary tract infection, site not specified; I10 Essential (primary) hypertension; J45.909 Unspecified asthma, uncomplicated; K21.9 Gastro-esophageal reflux disease without esophagitis; E66.9 Obesity, unspecified; E78.00 Pure hypercholesterolemia, unspecified; Z88.2 Allergy status to sulfonamides; Z88.1 Allergy status to other antibiotic agents; Z88.8 Allergy status to other drugs, medicaments and biological substances; Z91.09 Other allergy status, other than to drugs and biological substances; Z79.899 Other long term (current) drug therapy; Z90.710 Acquired absence of both cervix and uterus; Z98.84 Bariatric surgery status; Z98.890 Other specified postprocedural states; Z68.33 Body mass index [BMI] 33.0-33.9, adult
CPT/HCPCS: 36415; 57260; 57288; 85025; 88305; 94640; C1771; J0330; J1100; J2250; J2370; J2405; J2704; J3010; J7120; 00942

== ENCOUNTER → 2021-01-23 | Day surgery (SDC) | payer MEDICARE, OTHER ==
[2021-01-23] MEDS: Brimonidine 0.2% Ophth Soln 5 ML Bottle EYEBOTH SCH ×3 (11:24→12:20)
[2021-01-23] MEDS: Phenylephrine 2.5% Ophth Soln 2 ML Bot EYEBOTH SCH ×4 (11:30→11:54)
[2021-01-23] MEDS: Tropicamide 1% Ophth Soln 15 ML Bottle EYEBOTH SCH ×4 (11:34→11:57)
== END ==
LOC: JD.SDS 11:12
PROVIDERS: ATTEND Ophthalmology
DX: H26.493 Other secondary cataract, bilateral (principal); H35.3132 Nonexudative age-related macular degeneration, bilateral, intermediate dry stage; H35.363 Drusen (degenerative) of macula, bilateral; H16.103 Unspecified superficial keratitis, bilateral; H16.223 Keratoconjunctivitis sicca, not specified as Sjogren's, bilateral; J45.909 Unspecified asthma, uncomplicated; E11.9 Type 2 diabetes mellitus without complications; Z98.890 Other specified postprocedural states; Z88.2 Allergy status to sulfonamides; Z79.899 Other long term (current) drug therapy; Z96.1 Presence of intraocular lens

== ENCOUNTER 2021-05-07 12:56 | Emergency (ER) | payer MEDICARE, OTHER ==
[2021-05-07] MEDS ORDERED: Sodium Chloride 0.9% 1,000 ML IV ONE (12:57)
[2021-05-07] MEDS ORDERED: Sodium Chloride 0.9% 10 ML Syringe FLUSH PRN (13:09)
[2021-05-07] MEDS ORDERED: Midazolam 1 MG/ML 5 ML SDV ONE (13:11)
[2021-05-07] MEDS ORDERED: Etomidate 2 MG/ML 20 ML SDV IVPUSH ONE (13:12)
[2021-05-07] MEDS ORDERED: Succinylcholine 200 MG/10 ML MDV IV ONE (13:13)
[2021-05-07] MEDS ORDERED: propofoL 100 ML IV SCH (13:15)
--- NOTE | 2021-05-07 13:23 | EDM.PDOC ---
ED HPI GENERAL MEDICAL PROBLEM - General Chief Complaint: Head Injury Stated Complaint: [facility] Time Seen by Provider: 05/07/21 13:09 Source of Information: Reports: EMS History Limitations: Reports: Altered Mental Status - History of Present Illness INITIAL COMMENTS - FREE TEXT/NARRATIVE: The patient presents by [facility] for a head injury. The patient was at the library in [facility] and it appears she fell backward while going up the library steps and hit her head on the marble floor. She may have fallen about 5 feet backward. She was knocked out. There was lots of bleeding on seen. She would follow some commands. She was not talking. Her oxygen saturations were in the 80s so EMS put her on a nonrebreather. She is not on any blood thinners according to old records. Onset: Sudden Duration: Minutes: Location: Reports: Head Associated Symptoms: Reports: No Other Symptoms - Related Data Allergies Allergy/AdvReac Type Severity Reaction Status Date / Time nitrofurantoin Allergy Rash Verified 01/23/21 11:19 [From Macrobid] nitrofurantoin Allergy Rash Verified 01/23/21 11:19 macrocrystalline [From Macrobid] Sulfa (Sulfonamide Allergy Rash Verified 01/23/21 11:19 Antibiotics) aspirin AdvReac Stomach Verified 01/23/21 11:19 Upset rosuvastatin calcium AdvReac Muscle Verified 01/23/21 11:19 [From Crestor] Aches simvastatin [From Zocor] AdvReac Muscle Verified 01/23/21 11:19 Aches Home Meds: Home Meds Albuterol Sulfate [Proair Respiclick] 2 puff IH ASDIRECTED PRN 02/18/15 [History] Calcium Citrate/Vitamin D3 [Calcium Citrate-Vit D Caplet] 1 tab PO BID 02/18/15 [History] Cholecalciferol (Vitamin D3) [Vitamin D3] 2,000 unit PO BID 02/18/15 [History] Fluticasone Propionate [Flonase] 1 spray NASBOTH BID 02/18/15 [History] Fluticasone Propionate [Flovent HFA 110 MCG] 2 puff INH BID 02/18/15 [History] LORazepam [Ativan] 1 mg PO QAM 02/18/15 [History] Loratadine [Claritin] 10 mg PO DAILY PRN 02/18/15 [History] Metoprolol Succinate [Toprol XL] 25 mg PO BID 02/18/15 [History] Multivitamin [Multivitamins] 1 each PO DAILY 02/18/15 [History] Petrolat,Wht/Min Oil/Sod Chl [Artificial Tear Ointment] 1 applic OP ASDIRECTED PRN 02/18/15 [History] Polyethylene Glycol 3350 [MiraLAX] 17 gm PO DAILY 02/18/15 [History] Pravastatin Sodium [Pravachol] 20 mg PO DAILY 02/18/15 [History] Cyanocobalamin (Vitamin B-12) [B-12 Kit] 1 dose SQ Q30D 03/12/16 [History] LORazepam [Ativan] 2 mg PO BEDTIME 03/12/16 [History] Psyllium with Sucrose [Metamucil] 1 each PO DAILY 03/12/16 [History] Denosumab [Prolia] 60 mg SQ ASDIRECTED 04/21/20 [History] Furosemide [Lasix] 20 mg PO DAILY PRN 04/21/20 [History] Acetaminophen/oxyCODONE [Percocet 325-5 MG] 2 tab PO Q4H PRN tablet 06/27/20 [Rx] Ibuprofen [Motrin] 600 mg PO Q4H PRN tablet 06/27/20 [Rx] Past Medical History HEENT History: Reports: Allergic Rhinitis, Impaired Vision, Other (See Below) Other HEENT History: wears glasses Cardiovascular History: Reports: High Cholesterol, Hypertension Other Cardiovascular History: palpitations Respiratory History: Reports: Asthma Other Respiratory History: allergies Gastrointestinal History: Reports: Chronic Constipation, GERD, Hiatal Hernia, Other (See Below) Other Gastrointestinal History: gastric ulcer Genitourinary History: Reports: Urinary Incontinence Other Genitourinary History: frequency, stress urinary incontinece, atrophic vaginits, 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: Musculoskeletal History: Reports: Arthritis, Back Pain, Chronic, Neck Pain, Chronic Neurological History: Reports: None Psychiatric History: Reports: Anxiety, Depression Endocrine/Metabolic History: Reports: Obesity/BMI 30+ Hematologic History: Reports: Anemia Immunologic History: Reports: None Oncologic (Cancer) History: Reports: None Dermatologic History: Reports: None - Infectious Disease History Infectious Disease History: Reports: None - Past Surgical History Head Surgeries/Procedures: Reports: None HEENT Surgical History: Reports: Cataract Surgery, Naso-Sinus Surgery, Oral Surgery, Tonsillectomy Cardiovascular Surgical History: Reports: None Respiratory Surgical History: Reports: None GI Surgical History: Reports: Appendectomy, Bariatric Procedure, Kristy Fundoplication, Other (See Below) Other GI Surgeries/Procedures: rectal surgery Female Surgical History: Reports: D&C, Hysterectomy Endocrine Surgical History: Reports: None Neurological Surgical History: Reports: Lumbar Spine Musculoskeletal Surgical History: Reports: Other (See Below) Other Musculoskeletal Surgeries/Procedures:: knee replacement, hx shoulder surgeries Oncologic Surgical History: Reports: None Dermatological Surgical History: Reports: None Social & Family History - Family History Family Medical History: No Pertinent Family History - Caffeine Use Caffeine Use: Reports: None ED ROS GENERAL - Review of Systems Review Of Systems: Unable To Obtain Reason Not Obtained: Patient is not responding ED EXAM, HEAD INJURY - Physical Exam Exam: See Below Exam Limited By: Altered Mental Status General Appearance: Obtunded Head: Other (Bleeding from the right ear) Eyes: Bilateral Eye: EOMI Ears: Other (bleeding from right ear) Nose: Normal Inspection Throat/Mouth: Other (Mild amount of blood in her airway) Neck: Non-Tender Respiratory: No Respiratory Distress, Lungs Clear, Normal Breath Sounds Cardiovascular: Regular Rate, Rhythm, No Edema, No Murmur, No Rub GI/Abdominal Exam: Soft, Non-Tender, No Organomegaly Back Exam: Normal Inspection Extremities: Other (Laceration to the left elbow that is 2cm) Neurologic: Other (Patient obtunded. She will follow some commands.) ED LACERATION/WOUND & TISH PROC - Laceration/Wound Repair Left Elbow Lac/wound length in cm: 2 Appearance: Subcutaneous, Linear Skin Prep: Saline Exploration/Debridement/Repair: Wound Explored, In a Bloodless Field, Explored to Base Closed with: Serena # of Sutures: 3 Tetanus Status Addressed: Yes Complications: No - Endotracheal Intubation Time of Intubation: 13:05 ET Intubation Indication: Respiratory Failure, Airway Protection Preparation: Suction, Balloon Tested, BVM Set Up, Difficult Airway Equip Pre-Oxygenation: 100% FiO2 Anesthesia Meds: Etomidate, Succinylcholine Placement: Orotracheal, Cuffed, Uncomplicated Placement Cords Visualized: Yes ETT Size In mm: 7.5 Number of Attempts: 1 Confirmed By: CO2 Indicator, Bilateral Breath Sounds, Chest Xray Tube Secured By: By RT Course - Vital Signs Last Recorded V/S: Last Vital Signs Temp 98.0 F 05/07/21 12:56 Pulse 91 05/07/21 12:56 Resp 16 05/07/21 12:56 BP Pulse Ox 86 L 05/07/21 12:56 - Orders/Labs/Meds Orders: Active Orders 24 hr Category Date Time Status Cardiac Monitoring [RC] . DIRECTED Care 05/07/21 13:09 Active Peripheral IV Care [RC] . DIRECTED Care 05/07/21 13:10 Active RASS Sedation Scale [RC] ASDIRECTED Care 05/07/21 13:13 Active Cervical Spine 1V [CR] Routine Exams 05/07/21 13:25 Taken Cervical Spine wo Cont [CT] Stat Exams 05/07/21 13:12 Taken Chest 1V Frontal [CR] Stat Exams 05/07/21 13:10 Taken Head wo Cont [CT] Stat Exams 05/07/21 13:10 Taken COVID-19/FLU A+B [MOLEC] Stat Lab 05/07/21 14:06 Received Sodium Chloride 0.9% [Saline Flush] Med 05/07/21 13:09 Active 10 ml FLUSH ASDIRECTED PRN propofoL [Diprivan 100 ML] 100 ml Med 05/07/21 13:15 Active IV TITRATE Desired Level of Sedation (RASS) [AST] Click to Edit Oth 05/07/21 13:13 Ordered Peripheral IV Insertion Adult [OM.PC] Stat Oth 05/07/21 13:09 Ordered Medication Orders Propofol (Diprivan 100 Ml) 100 mls @ 2.7 mls/hr IV TITRATE JAE; Protocol Sodium Chloride (Sodium Chloride 0.9% 10 Ml Syringe) 10 ml FLUSH ASDIRECTED PRN PRN Reason: Keep Vein Open Labs: Laboratory Tests 05/07/21 05/07/21 05/07/21 Range/Units 13:32 13:32 13:32 WBC 6.93 (3.98-10.04) K/mm3 RBC 4.06 (3.98-5.22) M/mm3 Hgb 12.1 (11.2-15.7) gm/dl Hct 37.8 (34.1-44.9) % MCV 93.1 (79.4-94.8) fl MCH 29.8 (25.6-32.2) pg MCHC 32.0 L (32.2-35.5) g/dl RDW Std Deviation 44.0 (36.4-46.3) fL Plt Count 154 L (182-369) K/mm3 MPV 10.3 (9.4-12.3) fl Neut % (Auto) 73.7 H (34.0-71.1) % Lymph % (Auto) 18.0 L (19.3-51.7) % [place] % (Auto) 6.8 (4.7-12.5) % Eos % (Auto) 1.0 (0.7-5.8) Baso % (Auto) 0.1 (0.1-1.2) % Neut # (Auto) 5.10 (1.56-6.13) K/mm3 Lymph # (Auto) 1.25 (1.18-3.74) K/mm3 [place] # (Auto) 0.47 H (0.24-0.36) K/mm3 Eos # (Auto) 0.07 (0.04-0.36) K/mm3 Baso # (Auto) 0.01 (0.01-0.08) K/mm3 PT 10.3 (9.7-12.0) SECONDS INR 0.93 APTT 28.8 (21.7-31.4) SECONDS Puncture Site ABG pH (7.35-7.45) ABG pCO2 (35.0-45.0) mmHg ABG pO2 (80.0-100.0) mmHg ABG HCO3 (22.0-26.0) meq/L ABG O2 Saturation (96.0-97.0) % ABG Base Excess (-2-2.0) Arnie Test A-a Gradient mmHg O2 Delivery Device FiO2 (21.00-100.00) % Tidal Volume cc PEEP cmH20 Sodium 141 (136-145) mEq/L Potassium 3.5 (3.5-5.1) mEq/L Chloride 106 (98-107) mEq/L Carbon Dioxide 26 (21-32) mEq/L Anion Gap 12.5 (5-15) BUN 23 H (7-18) mg/dL Creatinine 0.9 (0.55-1.02) mg/dL Est Cr Clr Drug Dosing TNP Estimated GFR (MDRD) > 60 (>60) mL/min BUN/Creatinine Ratio 25.6 H (14-18) Glucose 123 H (70-99) mg/dL Calcium 8.8 (8.5-10.1) mg/dL Total Bilirubin 0.3 (0.2-1.0) mg/dL AST 32 (15-37) U/L ALT 37 (14-59) U/L Alkaline Phosphatase 57 (46-116) U/L Troponin I < 0.017 (0.00-0.056) ng/mL C-Reactive Protein <0.2 (<1.0) mg/dL Total Protein 6.6 (6.4-8.2) g/dl Albumin 3.6 (3.4-5.0) g/dl Globulin 3.0 gm/dL Albumin/Globulin Ratio 1.2 (1-2) 05/07/21 Range/Units 13:37 WBC (3.98-10.04) K/mm3 RBC (3.98-5.22) M/mm3 Hgb (11.2-15.7) gm/dl Hct (34.1-44.9) % MCV (79.4-94.8) fl MCH (25.6-32.2) pg MCHC (32.2-35.5) g/dl RDW Std Deviation (36.4-46.3) fL Plt Count (182-369) K/mm3 MPV (9.4-12.3) fl Neut % (Auto) (34.0-71.1) % Lymph % (Auto) (19.3-51.7) % [place] % (Auto) (4.7-12.5) % Eos % (Auto) (0.7-5.8) Baso % (Auto) (0.1-1.2) % Neut # (Auto) (1.56-6.13) K/mm3 Lymph # (Auto) (1.18-3.74) K/mm3 [place] # (Auto) (0.24-0.36) K/mm3 Eos # (Auto) (0.04-0.36) K/mm3 Baso # (Auto) (0.01-0.08) K/mm3 PT (9.7-12.0) SECONDS INR APTT (21.7-31.4) SECONDS Puncture Site Lt radial ABG pH 7.35 (7.35-7.45) ABG pCO2 41.8 (35.0-45.0) mmHg ABG pO2 80.0 (80.0-100.0) mmHg ABG HCO3 22.3 (22.0-26.0) meq/L ABG O2 Saturation 96.5 (96.0-97.0) % ABG Base Excess -2.6 L (-2-2.0) Arnie Test Positive A-a Gradient 224 mmHg O2 Delivery Device Ventilator FiO2 50.00 (21.00-100.00) % Tidal Volume 500.0 cc PEEP 5.0 cmH20 Sodium (136-145) mEq/L Potassium (3.5-5.1) mEq/L Chloride (98-107) mEq/L Carbon Dioxide (21-32) mEq/L Anion Gap (5-15) BUN (7-18) mg/dL Creatinine (0.55-1.02) mg/dL Est Cr Clr Drug Dosing Estimated GFR (MDRD) (>60) mL/min BUN/Creatinine Ratio (14-18) Glucose (70-99) mg/dL Calcium (8.5-10.1) mg/dL Total Bilirubin (0.2-1.0) mg/dL AST (15-37) U/L ALT (14-59) U/L Alkaline Phosphatase (46-116) U/L Troponin I (0.00-0.056) ng/mL C-Reactive Protein (<1.0) mg/dL Total Protein (6.4-8.2) g/dl Albumin (3.4-5.0) g/dl Globulin gm/dL Albumin/Globulin Ratio (1-2) Meds: Medications Generic Name Dose Route Start Last Admin Trade Name Freq PRN Reason Stop Dose Admin Propofol 100 mls @ 2.7 mls/hr 05/07/21 13:15 Diprivan 100 Ml IV TITRATE JAE Protocol 5 MCG/KG/MIN Sodium Chloride 10 ml 05/07/21 13:09 Sodium Chloride 0.9% 10 Ml Syringe FLUSH ASDIRECTED PRN Keep Vein Open Discontinued Medications Generic Name Dose Route Start Last Admin Trade Name Freq PRN Reason Stop Dose Admin Etomidate 20 mg 05/07/21 13:12 Etomidate 2 Mg/Ml 20 Ml Sdv IVPUSH 05/07/21 13:13 ONETIME ONE Levetiracetam 1,000 mg/ Sodium 110 mls @ 400 mls/hr 05/07/21 13:55 Chloride IV 05/07/21 14:09 ONETIME ONE Midazolam HCl 5 mg 05/07/21 13:56 Midazolam 1 Mg/Ml 5 Ml Sdv IVPUSH 05/07/21 13:57 ONETIME ONE Midazolam HCl Confirm 05/07/21 13:59 Midazolam 1 Mg/Ml 2 Ml Sdv Administered 05/07/21 14:00 Dose 2 mg .ROUTE .STK-MED ONE Midazolam HCl Confirm 05/07/21 14:03 Midazolam 1 Mg/Ml 2 Ml Sdv Administered 05/07/21 14:04 Dose 4 mg .ROUTE .STK-MED ONE Rocuronium [place] 70 mg 05/07/21 13:55 Rocuronium 50 Mg/5 Ml Vial IVPUSH 05/07/21 13:56 ONETIME ONE Succinylcholine Chloride 120 mg 05/07/21 13:13 Succinylcholine 200 Mg/10 Ml Mdv IV 05/07/21 13:14 ONETIME ONE Tranexamic Acid 2,000 mg 05/07/21 13:54 Tranexamic Acid 1,000 Mg/10 Ml Amp IVPUSH 05/07/21 13:55 ONETIME ONE - Re-Assessments/Exams Free Text/Narrative Re-Assessment/Exam: 05/07/21 13:40 A trauma alert was called. The patient would not talk. She would follow some commands. Her oxygen saturations were in the 80s. I elected to secure her air way. I ordered etomidate 10mg IV and succinylcholine 120mg IV and I intubated the patient without any problems. I ordered a propofol drip for sedation. The CT shows a skull fracture, interparenchymal, subarachnoid and subdural hematomas. This is from my interpretation. I called [facility]iraldo in [place] and [facility] [place] and both are full. I called [facility] in [place] and I am waiting to talk with the neurosurgeon. 05/07/21 14:12 I talked with the neurosurgeon and he wanted 2 grams of TXA adn kepra 1 gram. I ordered that. The patient was breathing above the ventilator. I ordered vers ed 5mg IV and roccuronium 70mg IV. I also talked with the ER doctor in [place] Dr Braxton and he accepted the patient. She will be going by [employer] [facility]. 05/07/21 14:[address] of her cervical spine shows nothing acute. 05/07/21 14:16 Critical care time is 90 minutes. 05/07/21 14:19 I also ordered ancef 1 gram IV. Departure - Departure Time of Disposition: 14:20 Disposition: DC/Tfer to Acute Hospital 02 Condition: Critical Clinical Impression: Subarachnoid bleed, Subdural bleeding Fall Qualifiers: Encounter type: initial encounter Qualified Code(s): W19.XXXA - Unspecified f all, initial encounter Skull fracture Qualifiers: Encounter type: initial encounter Skull bone/location: temporal bone Fracture type: open Qualified Code(s): S02.19XB - Other fracture of base of skull, initial encounter for open fracture Cerebral contusion Qualifiers: Encounter type: initial encounter Laterality: unspecified laterality Loss of consciousness presence/duration: with LOC of 31 min - 59 min Qualified Code(s): S06.332A - Contusion and laceration of cerebrum, unspecified, with loss of consciousness of 31 minutes to 59 minutes, initial encounter - Discharge Information Forms: ED Department Discharge Sepsis Event Note (ED) - Focused Exam Vital Signs: Vital Signs Temp Pulse Resp Pulse Ox 05/07/21 12:56 98.0 F 91 16 86 L - My Orders Last 24 Hours: My Active Orders 05/07/21 13:09 Cardiac Monitoring [RC] . DIRECTED Sodium Chloride 0.9% [Saline Flush] 10 ml FLUSH ASDIRECTED PRN Peripheral IV Insertion Adult [OM.PC] Stat 05/07/21 13:10 Peripheral IV Care [RC] . DIRECTED Chest 1V Frontal [CR] Stat Head wo Cont [CT] Stat 05/07/21 13:12 Cervical Spine wo Cont [CT] Stat 05/07/21 13:13 RASS Sedation Scale [RC] ASDIRECTED Desired Level of Sedation (RASS) [AST] Click to Edit 05/07/21 13:15 propofoL [Diprivan 100 ML] 100 ml IV TITRATE 05/07/21 13:25 Cervical Spine 1V [CR] Routine 05/07/21 14:06 COVID-19/FLU A+B [MOLEC] Stat - Assessment/Plan Last 24 Hours: My Active Orders 05/07/21 13:09 Cardiac Monitoring [RC] . DIRECTED Sodium Chloride 0.9% [Saline Flush] 10 ml FLUSH ASDIRECTED PRN Peripheral IV Insertion Adult [OM.PC] Stat 05/07/21 13:10 Peripheral IV Care [RC] . DIRECTED Chest 1V Frontal [CR] Stat Head wo Cont [CT] Stat 05/07/21 13:12 Cervical Spine wo Cont [CT] Stat 05/07/21 13:13 RASS Sedation Scale [RC] ASDIRECTED Desired Level of Sedation (RASS) [AST] Click to Edit 05/07/21 13:15 propofoL [Diprivan 100 ML] 100 ml IV TITRATE 05/07/21 13:25 Cervical Spine 1V [CR] Routine 05/07/21 14:06 COVID-19/FLU A+B [MOLEC] Stat
[2021-05-07] MEDS ORDERED: Propofol 200 MG/20 ML SDV ONE (13:30)
[2021-05-07] MEDS ORDERED: levETIRAcetam 1,000 MG in Sodium Chloride 0.9% 100 ML IV ONE (13:55)
[2021-05-07] MEDS ORDERED: Rocuronium 50 MG/5 ML Vial IVPUSH ONE (13:55)
[2021-05-07] MEDS ORDERED: Midazolam 1 MG/ML 5 ML SDV IVPUSH ONE (13:56)
[2021-05-07] MEDS ORDERED: Midazolam 1 MG/ML 2 ML SDV ONE ×3 (13:59→14:30)
[2021-05-07 14:16] VITALS: BP 145/95; PULSE 100
[2021-05-07] MEDS ORDERED: ceFAZolin 1 GM in Sodium Chloride 0.9% 100 ML IV ONE (14:18)
--- NOTE | 2021-05-07 14:45 | CT ---
EXAM: CT HEAD W/O, CT C-SPINE SPINE WO CON LOCATION: [facility] DATE/TIME: 05/07/2021 1:06 PM INDICATION: Fall ? bleed COMPARISON: 01/10/2017 TECHNIQUE: 1) Routine CT Head without IV contrast. Multiplanar reformats. Dose reduction techniques were used. 2) Routine CT Cervical Spine without IV contrast. Multiplanar reformats. Dose reduction techniques were used. FINDINGS: HEAD CT: INTRACRANIAL CONTENTS: Clustered hemorrhagic contusions in the inferior right temporal lobe, the largest measuring 20 mm x 14 mm x 9 mm (series 2, image 15). Small hemorrhagic contusions involving the inferior left frontal lobe. No significant vasogenic edema. Left anterior cranial fossa hyperattenuating subdural hematoma measures up to 6 mm in thickness. Hyperattenuating subdural hematoma overlying the superolateral left cerebral convexity measures up to 6 mm in thickness overlying the left parietal convexity (series 7, image 18 conference. Hyper attenuating subdural hematoma overlying the right cerebral convexity measures up to 6 mm in thickness. Trace acute subdural hematoma along the left anterior hemispheric fissure. Trace acute subdural hematoma along the right cerebellar tentorial leaflets. Moderate volume subarachnoid, most prominent in the right sylvian fissure but also in scattered about the right cerebral hemisphere and the left frontal sulci. Small and subarachnoid hemorrhage in the superior cerebellar hemisphere. Small amount of pneumocephalus in the suprasellar cistern, right middle cranial fossa, and adjacent to or within the right transverse/sigmoid sinus. 2 mm rightward midline shift. No herniation. No hydrocephalus. No acute large artery territory infarction. VISUALIZED ORBITS/SINUSES/MASTOIDS: Small amount of air within the left orbital apex extraconal fat. No additional acute orbital abnormality. Bilateral cataract surgery. Blood products opacify the sphenoid chambers. Moderate opacification of the right tympanomastoid cavity. Left mastoid cavities clear. BONES/SOFT TISSUES: Mildly displaced right mastoid temporal bone fracture which propagates dorsally through the right lambdoid suture, midline occipital bone, and right parietal bone. Eventually, the fracture propagates to the right central sphenoid bone involving the right carotid canal and both sphenoid sinus melendez (series 5, images 11-13). The fracture may involve the left orbital roof orbital apex given presence of air within the left orbital apex. Age-indeterminate nasal bone fractures, mildly leftward displaced. No additional displaced fracture.. CERVICAL SPINE CT: VERTEBRA: No fracture or posttraumatic subluxation. Normal craniocervical and atlantoaxial alignment. Mild degenerative presumed degenerative anterolisthesis at C3-C4. Vertebral body heights are maintained. No aggressive osseous abnormality. Multilevel cervical spondylosis. CANAL/FORAMINA: No high-grade spinal canal or neural foraminal stenosis. PARASPINAL: No acute extraspinal abnormality. IMPRESSION: HEAD CT: 1. Moderate volume subarachnoid hemorrhage, most prominent in the right sylvian fissure but also in the left frontal sulci and superior right cerebellar hemisphere. 2. Bilateral subcentimeter acute subdural hematomas along the right anterior cranial fossa, and the bilateral cerebral convexities. 3. Hemorrhagic contusions in the inferior right temporal lobe and left inferior frontal lobe. 4. Mild mass effect including 2 mm rightward midline shift. No herniation. 5. No hydrocephalus. No acute large artery territory infarction. 6. Mildly displaced mastoid temporal bone fracture which propagates through the right central sphenoid skull base and involves the right parietal and occipital calvarium. 7. Recommend CTA head as the fracture involves the right carotid canal wall. 8. Recommend CTV to evaluate integrity of the right transverse and sigmoid sinuses as the fracture involves the overlying calvarium and there is air and blood products about the right lateral dural venous sinuses. 9. Patient is at increased risk for CSF leak given fracture involvement of the bilateral sphenoid sinus melendez. 10. Fracture may involve the left orbital apex given presence of a small amount of air within the extraconal fat. No additional acute orbital abnormality. 11. Age-indeterminate nasal bone fractures. CERVICAL SPINE CT: 1. No CT evidence for acute fracture or post traumatic subluxation. Findings discussed with Dr. Aamir Prescott at 1448 hours on 05/07/2021 SIGNED BY: Davian Rosa MD 05/07/2021 3:01 PM [facility]
[2021-05-07 14:46] LABS: CORONAVIRUS COVID-19 NAA NEGATIVE (NEGATIVE)
--- NOTE | 2021-05-07 14:46 | CR ---
EXAM: XR CHEST 1 VIEW LOCATION: [facility] [employer] DATE/TIME: 05/07/2021 1:14 PM INDICATION: Trauma, ET tube placement. COMPARISON: None. IMPRESSION: Endotracheal tube is in a high position located 9 cm from the akira near the thoracic inlet. Enteric tube tip courses below the diaphragm within the mid stomach. Heart size and mediastinum are unremarkable. Lungs and pleural spaces are clear with no pleural effusion or pneumothorax. Subtle cortical irregularity of the anterior right fourth and fifth rib that could represent nondisplaced fractures in the appropriate clinical scenario. SIGNED BY: Miki Villar MD 05/07/2021 2:52 PM [facility]
--- NOTE | 2021-05-08 09:07 | CR ---
EXAM: XR CERVICAL SPINE 1 VIEW LOCATION: [facility] [place] DATE/TIME: 05/07/2021 1:14 PM INDICATION: Trauma COMPARISON: Cervical spine CT 05/07/2021. TECHNIQUE: CR Cervical Spine. IMPRESSION: No fracture. Normal vertebral heights and alignment. Moderate multilevel cervical spondylosis. Limited evaluation of the prevertebral soft tissues due to overlapping endotracheal tube. SIGNED BY: Omer Ramirez MD 05/07/2021 9:15 PM [facility]
== END 2021-05-07 15:00 ==
LOC: JD.ED 12:56
DX: S02.19XB Other fracture of base of skull, initial encounter for open fracture (principal); S06.6X2A Traumatic subarachnoid hemorrhage with loss of consciousness of 31 minutes to 59 minutes, initial encounter; S06.5X2A Traumatic subdural hemorrhage with loss of consciousness of 31 minutes to 59 minutes, initial encounter; E78.00 Pure hypercholesterolemia, unspecified; I10 Essential (primary) hypertension; K21.9 Gastro-esophageal reflux disease without esophagitis; E66.9 Obesity, unspecified; Z68.30 Body mass index [BMI] 30.0-30.9, adult; Z88.1 Allergy status to other antibiotic agents; Z88.2 Allergy status to sulfonamides; Z88.8 Allergy status to other drugs, medicaments and biological substances; Z20.822 Contact with and (suspected) exposure to COVID-19; Z79.899 Other long term (current) drug therapy; W22.09XA Striking against other stationary object, initial encounter
CPT/HCPCS: 0240U; 12001; 31500; 36415; 36600; 70450; 71045; 72020; 72125; 80053; 81001; 82803; 84484; 85025; 85610; 85730; 86140; 96365; 96367; 96375; 99291; G0390; J0330; J0690; J1953; J2250; J2704; J3490; J7030